=== PATIENT | male | born 1950 | race Caucasian/White ===

== ENCOUNTER 2017-11-30 08:00 | Inpatient (IN) | payer OTHER ==
[~2017-11-30] VITALS: Ht 175.3 cm; Wt 79.4 kg
[2017-11-30] MEDS ORDERED: CLONAZEPAM2 MG PO (09:56)
[2017-11-30] MEDS ORDERED: COZAAR50 MG PO (09:57)
[2017-11-30] MEDS ORDERED: NAPROXEN500 MG PO (09:57)
[2017-11-30] MEDS ORDERED: ZOCOR5 MG PO (09:57)
[2017-11-30] MEDS ORDERED: NORVASC2.5 M1 PO (09:57)
[2017-11-30] MEDS ORDERED: METFORMIN HCL500 MG PO (09:58)
[2017-12-07] MEDS ORDERED: DOCUSATE SODIU100 MG PO (11:09)
[2017-12-07] MEDS ORDERED: PERCOCET 5-3251 EACH PO (11:11)
[2017-12-07] MEDS ORDERED: CLONAZEPAM1 MG PO (11:11)
== END 2017-12-07 14:04 | disposition home or self-care (01) | DRG 454 ==
LOC: O/R 12-06 04:35 → PED 12-06 04:35 → SURH 12-06 08:00 → PED 12-06 13:39
PROVIDERS: Orthopaedic Surgery Orthopaedic Surgery of the Spine
PROC: 0RG2071 Fusion of 2 or more Cervical Vertebral Joints with Autologous Tissue Substitute, Posterior Approach, Posterior Column, Open Approach (ICD-10-PCS; 2017-12-06)
PROC: 0RT30ZZ Resection of Cervical Vertebral Disc, Open Approach (ICD-10-PCS; 2017-12-06)
PROC: 07DS3ZZ Extraction of Vertebral Bone Marrow, Percutaneous Approach (ICD-10-PCS; 2017-12-06)
PROC: 0RG20A0 Fusion of 2 or more Cervical Vertebral Joints with Interbody Fusion Device, Anterior Approach, Anterior Column, Open Approach (ICD-10-PCS; principal; 2017-12-06 10:15)
DX: M50.01 Cervical disc disorder with myelopathy, high cervical region (principal); M47.12 Other spondylosis with myelopathy, cervical region; E11.9 Type 2 diabetes mellitus without complications; I10 Essential (primary) hypertension

== ENCOUNTER 2017-12-08 22:54 | Inpatient (IN) | payer OTHER ==
[~2017-12-08] VITALS: Ht 175.3 cm; Wt 79.4 kg
[~2017-12-08 22:54] MED LIST: CLONAZEPAM1 MG PO; CLONAZEPAM2 MG PO; COZAAR50 MG PO; DOCUSATE SODIU100 MG PO; METFORMIN HCL500 MG PO; NAPROXEN500 MG PO; NORVASC2.5 M1 PO; PERCOCET 5-3251 EACH PO; ZOCOR5 MG PO
[2017-12-23] MEDS ORDERED: CLONAZEPAM1 MG PO (07:45)
[2017-12-23] MEDS ORDERED: COZAAR50 MG PO (07:45)
[2017-12-23] MEDS ORDERED: DOCUSATE SODIU100 MG PO (07:45)
[2017-12-23] MEDS ORDERED: ZOCOR5 MG PO (07:45)
[2017-12-23] MEDS ORDERED: PERCOCET 5-3251 EACH PO (07:45)
[2017-12-23] MEDS ORDERED: METFORMIN HCL500 MG PO (07:45)
[2017-12-23] MEDS ORDERED: NORVASC2.5 M1 PO (07:45)
== END 2017-12-23 14:38 | disposition home health service (06) | DRG 208 ==
LOC: ER 22:54 → MEDI 12-09 06:40 → ICU-2 12-09 06:40 → MEDI 12-12 10:09 → MEDJ 12-12 10:15 → MEDI 12-12 12:57
PROC: 5A1945Z Respiratory Ventilation, 24-96 Consecutive Hours (ICD-10-PCS; principal; 2017-12-09)
PROC: 0BH17EZ Insertion of Endotracheal Airway into Trachea, Via Natural or Artificial Opening (ICD-10-PCS; 2017-12-09)
PROC: 3E0F7GC Introduction of Other Therapeutic Substance into Respiratory Tract, Via Natural or Artificial Opening (ICD-10-PCS; 2017-12-09)
PROC: 4A033R1 Measurement of Arterial Saturation, Peripheral, Percutaneous Approach (ICD-10-PCS; 2017-12-09)
PROC: 4A12X4Z Monitoring of Cardiac Electrical Activity, External Approach (ICD-10-PCS; 2017-12-12)
PROC: 3E0336Z Introduction of Nutritional Substance into Peripheral Vein, Percutaneous Approach (ICD-10-PCS; 2017-12-14)
PROC: 02H633Z Insertion of Infusion Device into Right Atrium, Percutaneous Approach (ICD-10-PCS; 2017-12-15)
PROC: BR30ZZZ Magnetic Resonance Imaging (MRI) of Cervical Spine (ICD-10-PCS; 2017-12-16)
PROC: BW2FZZZ Computerized Tomography (CT Scan) of Neck (ICD-10-PCS; 2017-12-16)
DX: J95.89 Other postprocedural complications and disorders of respiratory system, not elsewhere classified (principal); J69.0 Pneumonitis due to inhalation of food and vomit; A41.9 Sepsis, unspecified organism; J95.821 Acute postprocedural respiratory failure; T81.4XXA Infection following a procedure, initial encounter; M50.01 Cervical disc disorder with myelopathy, high cervical region; J90 Pleural effusion, not elsewhere classified; B37.0 Candidal stomatitis; E87.0 Hyperosmolality and hypernatremia; M96.840 Postprocedural hematoma of a musculoskeletal structure following a musculoskeletal system procedure; N17.8 Other acute kidney failure; E11.9 Type 2 diabetes mellitus without complications; I10 Essential (primary) hypertension; Z98.1 Arthrodesis status; Z78.1 Physical restraint status; R13.19 Other dysphagia; J98.6 Disorders of diaphragm; M48.02 Spinal stenosis, cervical region
CPT/HCPCS: 72141